=== PATIENT | female | born 1950 | race African-American/Black ===

== ENCOUNTER 2022-11-23 23:31 | Emergency (ER) | payer OTHER ==
[~2022-11-23] VITALS: Ht 165.1 cm; Wt 79.0 kg
[2022-11-23 23:38] VITALS: BP 169/94
[2022-11-24 00:01] VITALS: BP 178/102
[2022-11-24] MEDS ORDERED: NAPROXEN500 MG PO (01:46)
[2022-11-24 02:53] VITALS: BP 162/97
== END 2022-11-24 07:14 | disposition home or self-care (01) | DRG 552 ==
LOC: ED 23:31
DX: S13.9XXA Sprain of joints and ligaments of unspecified parts of neck, initial encounter (principal); V43.52XA Car driver injured in collision with other type car in traffic accident, initial encounter